=== PATIENT | female | born 1985 | race Caucasian/White ===

== ENCOUNTER 2022-02-27 20:23 | Outpatient (CLI) | payer OTHER | END 2022-02-27 21:28 | disposition home or self-care (01) | LOC: GENOP 20:23 | DX: O99.891 Other specified diseases and conditions complicating pregnancy (principal); Z3A.37 37 weeks gestation of pregnancy | CPT/HCPCS: G0463 ==

== ENCOUNTER 2022-03-13 05:28 | Inpatient (IN) | payer OTHER ==
[~2022-03-13] VITALS: Ht 160 cm; Wt 78.0 kg
[2022-03-13] MEDS ORDERED: FAMOTIDINE20 MG PO (06:15)
[2022-03-13 06:19] LABS: HEMOGLOBIN 10.5 gm/dl (12.3-15.3); RED BLOOD COUNT 3.97 M/UL (4.00-5.10); WHITE BLOOD COUNT 10.3 K/UL (4.5-11.0)
[2022-03-13] MEDS ORDERED: IBUPROFEN600 MG PO (07:45)
[2022-03-13] MEDS ORDERED: COLACE 100MG C100 MG PO (07:45)
[2022-03-13] MEDS ORDERED: HYDROCODON-ACE1 EAC6 PO (07:45)
[2022-03-14 03:47] LABS: HEMOGLOBIN 9.7 gm/dl (12.3-15.3)
== END 2022-03-14 18:07 | disposition home or self-care (01) | DRG 788 ==
LOC: OB 05:28
PROVIDERS: ADMIT Obstetrics & Gynecology
PROC: 3E0234Z Introduction of Serum, Toxoid and Vaccine into Muscle, Percutaneous Approach (ICD-10-PCS; 2022-03-13)
PROC: 10D00Z1 Extraction of Products of Conception, Low, Open Approach (ICD-10-PCS; principal; 2022-03-13 07:30)
DX: O34.211 Maternal care for low transverse scar from previous cesarean delivery (principal); Z37.0 Single live birth; Z3A.39 39 weeks gestation of pregnancy; Z83.3 Family history of diabetes mellitus; Z81.8 Family history of other mental and behavioral disorders; Z84.89 Family history of other specified conditions; Z23 Encounter for immunization
CPT/HCPCS: 36415; 81001; 82800; 85014; 85018; 85025; 85461; 86850; 86900; 86901; 90715; C9113; J0690; J1170; J2405; J2590; J2790